=== PATIENT | male | born 1990 | race Caucasian/White ===

== ENCOUNTER 2016-11-18 12:05 | Emergency (ER) | payer SELFPAY ==
[~2016-11-18] VITALS: Ht 167.6 cm; Wt 65.0 kg
[~2016-11-18 12:05] MED LIST: IBUP-232 PO; ZOFR4TAB3 SL
[2016-11-18] MEDS ORDERED: SODIUM CHLOR 0.9% 1000 ML INJ 1,000 ML IV SCH (12:10)
--- NOTE | 2016-11-18 12:13 | PD ---
HPI Chief Complaint: vomiting blood Time Seen by Provider: 12:10 Travel History International Travel<30 days: No Contact w/Intl Traveler<30days: No Traveled to known affect area: No History of Present Illness HPI 26-year-old male with history of pancreatitis, bipolar disorder, status post appendectomy and cholecystectomy, presents to the ER today because he states that he has been having nausea, vomiting, vomiting small amounts of blood this morning. He also complains of abdominal pain. He denies any fevers, diarrhea, or any other issues. Modifying Factors: None Associated Signs & Symptoms: Nausea, vomiting, abdominal pain Risk factors: Pancreatitis PFSH Past Medical History ADHD: Yes Asthma: No Blood Disorders: No Bipolar Disorder: Yes Heart Rhythm Problems: No Cancer: No Cardiovascular Problems: No High Cholesterol: No Chemotherapy: No Chest Pain: No Congestive Heart Failure: No COPD: No Diabetes: No Diminished Hearing: No Gastrointestinal Disorders: No Genitourinary: No Hiatal Hernia: Yes Hypertension: No Immune Disorder: No Inguinal Hernia: Yes Implanted Vascular Access Dvce: No Musculoskeletal: No Neurologic: No Psychiatric: Yes (HISTORY OF REPORTED BIPOLAR DISORDER) Reproductive: No Respiratory: No Immunizations Current: No Pancreatitis: Yes Radiation Therapy: No Sleep Apnea: No Thyroid Disease: No Past Surgical History Appendectomy: Yes Cholecystectomy: Yes Genitourinary Surgery: Yes (HERNIA REPAIR) Other Surgery: Yes (APPENDECTOMY) Social History Alcohol Use: Yes (bacardi gold) Tobacco Use: Yes (1/2 ppd) Substance Use: Yes (MARIJUANA) Allergies-Medications (Allergen,Severity, Reaction): Coded Allergies: No Known Allergies (Unverified , 10/15/16) Reported Meds & Prescriptions Reported Meds & Active Scripts Active No Active Prescriptions or Reported Medications Review of Systems Except as stated in HPI: all other systems reviewed are Neg Physical Exam Narrative GENERAL: Well-nourished, well-developed young male patient in mild distress. SKIN: Warm and dry. HEAD: Normocephalic. EYES: No scleral icterus. No injection or drainage. NECK: Supple, trachea midline. CARDIOVASCULAR: Regular rate and rhythm without murmurs, gallops, or rubs. RESPIRATORY: Breath sounds equal bilaterally. No accessory muscle use. GASTROINTESTINAL: Abdomen soft, diffuse abdominal tenderness without guarding or rebound, nondistended. MUSCULOSKELETAL: No cyanosis, or edema. BACK: Nontender without obvious deformity. No CVA tenderness. Data Data Last Documented VS Vital Signs Date Time Temp Pulse Resp B/P Pulse Ox O2 Delivery O2 Flow Rate FiO2 11/18/16 15:33 68 17 108/57 100 Room Air 11/18/16 12:14 98.4 Orders Complete Blood Count With Diff (11/18/16 12:10) Comprehensive Metabolic Panel (11/18/16 12:10) Lipase (11/18/16 12:10) Prothrombin Time / Inr (Pt) (11/18/16 12:10) Act Partial Throm Time (Ptt) (11/18/16 12:10) Ct Abd/Pel W Iv Contrast(Rout) (11/18/16 12:10) Iv Access Insert/Monitor (11/18/16 12:10) Ecg Monitoring (11/18/16 12:10) Oximetry (11/18/16 12:10) NPO (11/18/16 12:10) Ondansetron Inj (Zofran Inj) (11/18/16 12:15) Pantoprazole Inj (Protonix Inj) (11/18/16 12:15) Sodium Chlor 0.9% 1000 Ml Inj (Ns 1000 M (11/18/16 12:10) Sodium Chloride 0.9% Flush (Ns Flush) (11/18/16 12:15) Morphine Inj (Morphine Inj) (11/18/16 13:00) Labs Laboratory Tests Test 11/18/16 12:15 White Blood Count 4.7 TH/MM3 Red Blood Count 4.27 MIL/MM3 Hemoglobin 14.2 GM/DL Hematocrit 40.8 % Mean Corpuscular Volume 95.5 FL Mean Corpuscular Hemoglobin 33.3 PG Mean Corpuscular Hemoglobin 34.8 % Concent Red Cell Distribution Width 13.4 % Platelet Count 127 TH/MM3 Mean Platelet Volume 8.5 FL Neutrophils (%) (Auto) 76.8 % Lymphocytes (%) (Auto) 13.0 % Monocytes (%) (Auto) 8.0 % Eosinophils (%) (Auto) 0.5 % Basophils (%) (Auto) 1.7 % Neutrophils # (Auto) 3.6 TH/MM3 Lymphocytes # (Auto) 0.6 TH/MM3 Monocytes # (Auto) 0.4 TH/MM3 Eosinophils # (Auto) 0.0 TH/MM3 Basophils # (Auto) 0.1 TH/MM3 CBC Comment DIFF FINAL Differential Comment Prothrombin Time 11.7 SEC Prothromb Time International 1.1 RATIO Ratio Activated Partial 28.6 SEC Thromboplast Time Sodium Level 141 MEQ/L Potassium Level 4.2 MEQ/L Chloride Level 108 MEQ/L Carbon Dioxide Level 27.1 MEQ/L Anion Gap 6 MEQ/L Blood Urea Nitrogen 11 MG/DL Creatinine 0.71 MG/DL Estimat Glomerular Filtration 135 ML/MIN Rate Random Glucose 90 MG/DL Calcium Level 8.6 MG/DL Total Bilirubin 0.4 MG/DL Aspartate Amino Transf 41 U/L (AST/SGOT) Alanine Aminotransferase 187 U/L (ALT/SGPT) Alkaline Phosphatase 85 U/L Total Protein 7.5 GM/DL Albumin 4.1 GM/DL Lipase 74 U/L [facility] Medical Decision Making Medical Screen Exam Complete: Yes Emergency Medical Condition: Yes Medical Record Reviewed: Yes Interpretation(s) Laboratory Tests Test 11/18/16 12:15 Red Blood Count 4.27 MIL/MM3 (4.50-5.90) Platelet Count 127 TH/MM3 (150-450) Neutrophils (%) (Auto) 76.8 % (16.0-70.0) Lymphocytes # (Auto) 0.6 TH/MM3 (1.0-4.8) Prothrombin Time 11.7 SEC (9.8-11.6) Chloride Level 108 MEQ/L (98-107) Aspartate Amino Transf 41 U/L (15-37) (AST/SGOT) Alanine Aminotransferase 187 U/L (12-78) (ALT/SGPT) Differential Diagnosis Nausea, vomiting, abdominal pains, vomiting small amounts of bloodgastritis versus gastroenteritis versus pancreatitis versus GI bleed Narrative Course Lab work did not show significant signs of dehydration, anemia, or significant metabolic issues. CAT scan did not show any signs of acute intra-abdominal processes. At this point, suspect gastritis as the cause of current symptoms. Patient states that he vomited once up small amounts of blood at a time. At this point, patient had been given IV fluids, anti-medics, pain medications, and is doing well in the ER on reevaluation at 3:30. At this point, my plan would be to release the patient with follow-up to primary care doctor. Return for any worsening in symptoms as necessary. The plan was discussed with him and he states understanding. He should return for any worsening in vomiting, bleeding, and as needed. Diagnosis Primary Impression: ACUTE GASTRITIS WITH BLEEDING Med/Other Pt SpecificInfo: Prescription(s) given Scripts Ondansetron Odt (Zofran Odt)4 Mg Tab4 Mg SL Q6HR PRN (Nausea/Vomiting) #7 TAB Ref 0 Prov:Abdoulaye Barber MD 11/18/16 Ranitidine (Zantac)150 Mg Dup800 Mg PO BID #20 TAB Ref 0 Prov:Abdoulaye Barber MD 11/18/16 Disposition: 01 DISCHARGE HOME Condition: Stable Abdoulaye Barber MD Nov 18, 2016 12:13
[2016-11-18 12:14] VITALS: BP 131/80; PULSE 87; RESP 16; TEMP 98.4; O2SAT 100
[2016-11-18] MEDS ORDERED: ONDANSETRON HCL 4 MG/2 ML VIAL IVP ONE (12:15)
[2016-11-18] MEDS ORDERED: PANTOPRAZOLE SODIUM 40 MG VIAL IVP ONE (12:15)
[2016-11-18 12:26] LABS: AUTOMATED NEUTROPHIL # 3.6 TH/MM3 (1.8-7.7); BASOPHIL # 0.1 TH/MM3 (0-0.2); BASOPHIL % 1.7 % (0.0-2.0); EOSINOPHIL % 0.5 % (0.0-4.0); HEMATOCRIT 40.8 % (39.0-51.0); HEMO FLAGS DIFF FINAL; LYMPHOCYTE # 0.6 TH/MM3 (1.0-4.8); MEAN CELL VOLUME 95.5 FL (80.0-100.0); MEAN CORPUSCULAR HEMOGLOBIN 33.3 PG (27.0-34.0); MEAN CORPUSCULAR HGB CONC 34.8 % (32.0-36.0); NEUT % 76.8 % (16.0-70.0); PLATELET COUNT 127 TH/MM3 (150-450); RED BLOOD COUNT 4.27 MIL/MM3 (4.50-5.90); RED CELL DISTRIBUTION WIDTH 13.4 % (11.6-17.2); WHITE BLOOD COUNT 4.7 TH/MM3 (4.0-11.0)
[2016-11-18] MEDS: SODIUM CHLORIDE 0.9% FLUSH 5 ML FLUSH IVF PRN ×2 (12:31→14:50)
[2016-11-18 12:36] LABS: APTT (PATIENT) 28.6 SEC (24.3-30.1); INTERNATIONAL NORMALIZED RATIO 1.1 RATIO; PROTHROMBIN TIME - PATIENT 11.7 SEC (9.8-11.6)
[2016-11-18] MEDS ORDERED: MORPHINE SULFATE 4 MG/ML INJ IV PUSH ONE (13:00)
[2016-11-18 13:06] LABS: ALKALINE PHOSPHATASE 85 U/L (45-117); ALT (GPT) 187 U/L (12-78); ANION GAP 6 MEQ/L (5-15); AST (GOT) 41 U/L (15-37); BICARBONATE 27.1 MEQ/L (21.0-32.0); BLOOD UREA NITROGEN 11 MG/DL (7-18); CHLORIDE 108 MEQ/L (98-107); GLOMERULAR FILTRATION RATE 135 ML/MIN (>89); POTASSIUM 4.2 MEQ/L (3.5-5.1); SODIUM (NA) 141 MEQ/L (136-145); TOTAL BILIRUBIN ADULT 0.4 MG/DL (0.2-1.0)
[2016-11-18 15:33] VITALS: BP 108/57; PULSE 68; RESP 17; O2SAT 100
--- NOTE | 2016-11-18 15:35 | RADRPT ---
EXAM DATE/TIME: 11/18/2016 14:57 [facility] COMPARISON: CT ABDOMEN & PELVIS W CONTRAST, March 26, 2015, 15:22. INDICATIONS : Vomiting and abdominal pain for four days. IV CONTRAST: 95 cc Omnipaque 350 (iohexol) IV ORAL CONTRAST: No oral contrast ingested. RADIATION DOSE: 9.96 CTDIvol (mGy) MEDICAL HISTORY : Pancreatitis. Hernia, hiatal. Hernia, inguinal. SURGICAL HISTORY : Appendectomy. Cholecystectomy. ENCOUNTER: Initial ACUITY: 4 - 6 days PAIN SCALE: 7/10 LOCATION: abdomen/pelvis TECHNIQUE: Volumetric scanning of the abdomen and pelvis was performed. Using automated exposure control and ad justment of the mA and/or kV according to patient size, radiation dose was kept as low as reasonably achievable to obtain optimal diagnostic quality images. FINDINGS: LOWER LUNGS: The visualized lower lungs are clear. LIVER: Homogeneous density without lesion. There is no dilation of the biliary tree. The common bile duct measures 8 mm. Hemoclips in the kenneth from prior cholecystectomy. SPLEEN: Normal size without lesion. PANCREAS: Within normal limits. KIDNEYS: Normal in size and shape. There is no mass, stone or hydronephrosis. ADRENAL GLANDS: Within normal limits. VASCULAR: There is no aortic aneurysm. BOWEL/MESENTERY: No dilated loops of small large bowel. A mild amount of stool in the right colon. No evidence of fr ee fluid. ABDOMINAL WALL: Within normal limits. RETROPERITONEUM: There is no lymphadenopathy. BLADDER: No wall thickening or mass. REPRODUCTIVE: Within normal limits. INGUINAL: There is no lymphadenopathy or hernia. MUSCULOSKELETAL: Within normal limits for patient age. CONCLUSION: Negative CT abdomen/pelvis with contrast. Prior cholecystectomy with the common bile duct upper limi ts normal in dimension. Kang Hope MD on November 18, 2016 at 15:31 Board Certified Radiologist. This report was verified electronically.
[2016-11-18] MEDS ORDERED: ZOFR4TAB3 SL (15:39)
[2016-11-18] MEDS ORDERED: ZANT150T2 PO (15:39)
[2016-11-18] MEDS ORDERED: IOHEXOL 350 MG/ML 10 ML VIAL (for RAD DIAG) IV ONE (15:43)
== END 2016-11-18 16:36 | disposition home or self-care (01) ==
LOC: NEPA 12:05
DX: K29.01 Acute gastritis with bleeding (principal)
CPT/HCPCS: 74177; 80053; 83690; 85025; 85610; 85730; 96374; 96375; 99284; C9113; J2270; J2405; J7030; Q9967

== ENCOUNTER 2017-02-13 17:22 | Observation (INO) | payer SELFPAY ==
[~2017-02-13] VITALS: Ht 170.2 cm; Wt 62.0 kg
[~2017-02-13 17:22] MED LIST changes: -IBUP-232 PO; +ZANT150T2 PO
[2017-02-13 17:26] VITALS: BP 155/69; PULSE 73; RESP 15; TEMP 97.9; O2SAT 100
--- NOTE | 2017-02-13 17:29 | PD ---
Physical Exam Date Seen by Provider: Feb 13, 2017 Time Seen by Provider: 17:26 Narrative Pt presents with chest and stomach pain, this started at 1300 today. Pt has a history of pancreatitis. Pt reports nausea, dizziness, no vomiting. Pt reports 10/10 pain. Pt and girlfriend were walking around noon and 20 minutes into the walk he developed epigastric pain that radiates to chest and lower abdomen. [facility] Supervised Visit with SMHUEL: Belinda Thomas Feb 13, 2017 17:29
[2017-02-13] MEDS ORDERED: SODIUM CHLORIDE 0.9% FLUSH 10 ML FLUSH IVF PRN (17:45)
[2017-02-13] MEDS ORDERED: MORPHINE SULFATE 8 MG/ML INJ IV PUSH ONE ×2 (18:00→20:00)
[2017-02-13] MEDS ORDERED: SODIUM CHLOR 0.9% 1000 ML INJ 1,000 ML IV ONE (18:00)
[2017-02-13] MEDS ORDERED: ONDANSETRON HCL 4 MG/2 ML VIAL IV PUSH ONE (18:00)
[2017-02-13 18:06] LABS: AUTOMATED NEUTROPHIL # 5.9 TH/MM3 (1.8-7.7); BASOPHIL % 0.4 % (0.0-2.0); EOSINOPHIL % 0.5 % (0.0-4.0); HEMATOCRIT 40.9 % (39.0-51.0); HEMO FLAGS DIFF FINAL; LYMPH % 21.5 % (9.0-44.0); LYMPHOCYTE # 1.9 TH/MM3 (1.0-4.8); MEAN CELL VOLUME 94.7 FL (80.0-100.0); MEAN CORPUSCULAR HEMOGLOBIN 31.8 PG (27.0-34.0); MEAN CORPUSCULAR HGB CONC 33.5 % (32.0-36.0); NEUT % 65.6 % (16.0-70.0); PLATELET COUNT 146 TH/MM3 (150-450); RED BLOOD COUNT 4.32 MIL/MM3 (4.50-5.90); RED CELL DISTRIBUTION WIDTH 13.2 % (11.6-17.2)
--- NOTE | 2017-02-13 18:10 | RADRPT ---
EXAM DATE/TIME: 02/13/2017 17:59 [facility] COMPARISON: CHEST SINGLE AP, July 10, 2014, 19:47. INDICATIONS : Chest pain. MEDICAL HISTORY : None. SURGICAL HISTORY : None. ENCOUNTER: Initial ACUITY: 1 day PAIN SCORE: 10/10 LOCATION: Bilateral chest FINDINGS: A single view of the chest demonstrates the lungs to be symmetrically aerated without evidence of mas s, infiltrate or effusion. The cardiomediastinal contours are unremarkable. Osseous structures are intact. CONCLUSION: No acute disease. Jas Arzate MD on February 13, 2017 at 18:08 Board Certified Radiologist. This report was verified electronically.
[2017-02-13 18:13] VITALS: BP 125/76; PULSE 64; RESP 16; O2SAT 98
[2017-02-13 18:17] LABS: INTERNATIONAL NORMALIZED RATIO 1.1 RATIO; PROTHROMBIN TIME - PATIENT 12.2 SEC (9.8-11.6)
[2017-02-13 18:29] LABS: ANION GAP 7 MEQ/L (5-15); AST (GOT) 167 U/L (15-37); BICARBONATE 27.5 MEQ/L (21.0-32.0); BLOOD UREA NITROGEN 12 MG/DL (7-18); CHLORIDE 105 MEQ/L (98-107); GLOMERULAR FILTRATION RATE 145 ML/MIN (>89); MAGNESIUM 2.1 MG/DL (1.5-2.5); POTASSIUM 3.8 MEQ/L (3.5-5.1); SODIUM (NA) 139 MEQ/L (136-145)
[2017-02-13 18:34] LABS: ALKALINE PHOSPHATASE 83 U/L (45-117); ALT (GPT) 99 U/L (12-78); TOTAL BILIRUBIN ADULT 1.4 MG/DL (0.2-1.0)
[2017-02-13] MEDS ORDERED: IOHEXOL 350 MG/ML 10 ML VIAL (for RAD DIAG) IV ONE (18:40)
--- NOTE | 2017-02-13 18:49 | RADRPT ---
EXAM DATE/TIME: 02/13/2017 18:23 [facility] COMPARISON: CT ABDOMEN & PELVIS W CONTRAST, November 18, 2016, 14:57. INDICATIONS : Chest and abdomen pain with nausea. IV CONTRAST: 70 cc Omnipaque 350 (iohexol) IV ORAL CONTRAST: No oral contrast ingested. RADIATION DOSE: 9.96 CTDIvol (mGy) MEDICAL HISTORY : Pancreatitis. SURGICAL HISTORY : Appendectomy. Cholecystectomy. ENCOUNTER: Initial ACUITY: 1 day PAIN SCALE: 7/10 LOCATION: Bilateral upper abdomen TECHNIQUE: Volumetric scanning of the abdomen and pelvis was performed. Using automated exposure control and ad justment of the mA and/or kV according to patient size, radiation dose was kept as low as reasonably achievable to obtain optimal diagnostic quality images. FINDINGS: LOWER LUNGS: The visualized lower lungs are clear. LIVER: Homogeneous density without lesion. There is mild dilation of the biliary tree. Status post cholecy stectomy. Stable subcentimeter low density. SPLEEN: Normal size without lesion. PANCREAS: Within normal limits. KIDNEYS: Normal in size and shape. There is no mass, stone or hydronephrosis. ADRENAL GLANDS: Within normal limits. VASCULAR: There is no aortic aneurysm. BOWEL/MESENTERY: The stomach, small bowel, and colon demonstrate no acute abnormality. There is no free intraperitone al air or fluid. ABDOMINAL WALL: Within normal limits. RETROPERITONEUM: There is no lymphadenopathy. BLADDER: No wall thickening or mass. REPRODUCTIVE: Within normal limits. INGUINAL: There is no lymphadenopathy or hernia. MUSCULOSKELETAL: Within normal limits for patient age. CONCLUSION: 1. Status post cholecystectomy. 2. No acute inflammatory process. 3. Stable subcentimeter hepatic low-density, likely benign. Jas Arzate MD on February 13, 2017 at 18:43 Board Certified Radiologist. This report was verified electronically.
--- NOTE | 2017-02-13 18:52 | PD ---
HPI Chief Complaint: Chest Pain Time Seen by Provider: 17:35 Travel History International Travel<30 days: No Contact w/Intl Traveler<30days: No Traveled to known affect area: No History of Present Illness HPI 26-year-old male presents to the emergency department with epigastric pain radiating up into his chest. Patient states she's had similar symptoms like this in the past but never this severe. Patient states that he has a history of chronic pancreatitis. He relates a history that he was crossing a railroad tracks and had to hurry up because the train was coming. He says shortly after that he experienced the pain which resolved when he was sitting still. But then came back and his associated with severe nausea without vomiting. Patient states the pain is intense at this time and he is quite uncomfortable appearing. PFSH Past Medical History Hx Anticoagulant Therapy: No ADHD: Yes Asthma: No Blood Disorders: No Bipolar Disorder: Yes Heart Rhythm Problems: No Cancer: No Cardiovascular Problems: No High Cholesterol: No Chemotherapy: No Chest Pain: No Congestive Heart Failure: No COPD: No Cerebrovascular Accident: No Diabetes: No Diminished Hearing: No Gastrointestinal Disorders: No Genitourinary: No Hiatal Hernia: Yes Hypertension: No Immune Disorder: No Inguinal Hernia: Yes Implanted Vascular Access Dvce: No Musculoskeletal: No Neurologic: No Psychiatric: Yes (HISTORY OF REPORTED BIPOLAR DISORDER) Reproductive: No Respiratory: No Immunizations Current: No Pancreatitis: Yes Radiation Therapy: No Sleep Apnea: No Thyroid Disease: No Past Surgical History Appendectomy: Yes Cholecystectomy: Yes Genitourinary Surgery: Yes (HERNIA REPAIR) Hysterectomy: No Other Surgery: Yes (APPENDECTOMY) Social History Alcohol Use: Yes (bacardi gold) Tobacco Use: Yes (1/2 ppd) Substance Use: Yes (MARIJUANA) Allergies-Medications (Allergen,Severity, Reaction): Coded Allergies: No Known Allergies (Unverified , 02/13/17) Reported Meds & Prescriptions Reported Meds & Active Scripts Active Review of Systems Except as stated in HPI: all other systems reviewed are Neg Physical Exam Narrative GENERAL: Well-developed well-nourished no apparent distress SKIN: Focused skin assessment warm/dry. HEAD: Atraumatic. Normocephalic. EYES: Pupils equal and round. No scleral icterus. No injection or drainage. ENT: No nasal bleeding or discharge. Mucous membranes pink and moist. NECK: Trachea midline. No JVD. CARDIOVASCULAR: Regular rate and rhythm. No murmur appreciated. RESPIRATORY: No accessory muscle use. Clear to auscultation. Breath sounds equal bilaterally. GASTROINTESTINAL: Abdomen soft, moderately tender in the epigastric area, nondistended. Hepatic and splenic margins not palpable. Voluntary guarding. No rebound no percussive tenderness. MUSCULOSKELETAL: No obvious deformities. No clubbing. No cyanosis. No edema. NEUROLOGICAL: Awake and alert. No obvious cranial nerve deficits. Motor grossly within normal limits. Normal speech. PSYCHIATRIC: Appropriate mood and affect; insight and judgment normal. Data Data Last Documented VS Vital Signs Date Time Temp Pulse Resp B/P Pulse Ox O2 Delivery O2 Flow Rate FiO2 02/13/17 19:45 71 16 120/75 98 Room Air 02/13/17 17:26 97.9 Orders Complete Blood Count With Diff (02/13/17 17:37) Comprehensive Metabolic Panel (02/13/17 17:37) Magnesium (Mg) (02/13/17 17:37) Prothrombin Time / Inr (Pt) (02/13/17 17:37) Act Partial Throm Time (Ptt) (02/13/17 17:37) Troponin I (02/13/17 17:37) Lipase (02/13/17 17:37) Chest, Single Ap (02/13/17 17:37) Ecg Monitoring (02/13/17 17:37) Iv Access Insert/Monitor (02/13/17 17:37) Oximetry (02/13/17 17:37) Oxygen Administration (02/13/17 17:37) Sodium Chloride 0.9% Flush (Ns Flush) (02/13/17 17:45) Morphine Inj (Morphine Inj) (02/13/17 18:00) Ondansetron Inj (Zofran Inj) (02/13/17 18:00) Sodium Chlor 0.9% 1000 Ml Inj (Ns 1000 M (02/13/17 18:00) Ct Abd/Pel W Iv Contrast(Rout) (02/13/17 ) Iohexol 350 Inj (Omnipaque 350 Inj) (02/13/17 18:40) Morphine Inj (Morphine Inj) (02/13/17 20:00) Admit Order (Ed Use Only) (02/13/17 ) Labs Laboratory Tests Test 02/13/17 02/13/17 17:25 17:52 Prothrombin Time 12.2 SEC Prothromb Time International 1.1 RATIO Ratio Activated Partial 29.0 SEC Thromboplast Time White Blood Count 9.0 TH/MM3 Red Blood Count 4.32 MIL/MM3 Hemoglobin 13.7 GM/DL Hematocrit 40.9 % Mean Corpuscular Volume 94.7 FL Mean Corpuscular Hemoglobin 31.8 PG Mean Corpuscular Hemoglobin 33.5 % Concent Red Cell Distribution Width 13.2 % Platelet Count 146 TH/MM3 Mean Platelet Volume 8.3 FL Neutrophils (%) (Auto) 65.6 % Lymphocytes (%) (Auto) 21.5 % Monocytes (%) (Auto) 12.0 % Eosinophils (%) (Auto) 0.5 % Basophils (%) (Auto) 0.4 % Neutrophils # (Auto) 5.9 TH/MM3 Lymphocytes # (Auto) 1.9 TH/MM3 Monocytes # (Auto) 1.1 TH/MM3 Eosinophils # (Auto) 0.0 TH/MM3 Basophils # (Auto) 0.0 TH/MM3 CBC Comment DIFF FINAL Differential Comment Sodium Level 139 MEQ/L Potassium Level 3.8 MEQ/L Chloride Level 105 MEQ/L Carbon Dioxide Level 27.5 MEQ/L Anion Gap 7 MEQ/L Blood Urea Nitrogen 12 MG/DL Creatinine 0.67 MG/DL Estimat Glomerular Filtration 145 ML/MIN Rate Random Glucose 93 MG/DL Calcium Level 8.6 MG/DL Magnesium Level 2.1 MG/DL Total Bilirubin 1.4 MG/DL Aspartate Amino Transf 167 U/L (AST/SGOT) Alanine Aminotransferase 99 U/L (ALT/SGPT) Alkaline Phosphatase 83 U/L Troponin I LESS THAN 0.02 NG/ML Total Protein 7.0 GM/DL Albumin 4.2 GM/DL Lipase 874 U/L [facility] Medical Decision Making Medical Screen Exam Complete: Yes Emergency Medical Condition: Yes Differential Diagnosis Pancreatitis, gastritis, gastritis, ACS unlikely. Narrative Course Patient 26-year-old male with a history of recurrent pancreatitis status post cholecystectomy presents with signs symptoms concerning for recurrent pancreatitis. His lipase is elevated to in excess of 800. He is quite uncomfortable in appearance. He is been giving morphine fluids and Zofran I highly doubt that this patient is going to respond in the emergency department and likely will need admission. Patient given morphine and starting to feel somewhat better. He is thirsty. Discussed with him needs to keep nothing by mouth for the time being. He does appear quite uncomfortable. CAT scan was obtained which was negative. Additional dose of morphine was given. Patient initially reluctant to stay and I discussed that he could consider outpatient management but likely he may get sicker and require admission for dehydration if he is unable tolerate by mouth fluids after this discussion the patient like to stay at least overnight in the hospital and I think this is appropriate given his level of discomfort that he displays. Patient was discussed with Dr. Espino for admission. Diagnosis Primary Impression: Pancreatitis Qualified Code: K85.90 - Acute pancreatitis, unspecified complication status, unspecified pancreatitis type Admitting Information Admitting Physician Requests: Observation Condition: Stable Reyes Christy MD Feb 13, 2017 18:52
[2017-02-13 19:45] VITALS: BP 120/75; PULSE 71; RESP 16; O2SAT 98
[2017-02-13] MEDS ORDERED: NALOXONE HCL 0.4 MG/ML AMP IV PRN (20:00)
[2017-02-13] MEDS ORDERED: SODIUM CHLORIDE 0.9% FLUSH 10 ML FLUSH IV FLUSH PRN (20:00)
[2017-02-13] MEDS: SODIUM CHLOR 0.9% 1000 ML INJ 1,000 ML IV SCH (20:23)
[2017-02-13] MEDS: SODIUM CHLORIDE 0.9% FLUSH 10 ML FLUSH IV FLUSH SCH (20:51)
--- NOTE | 2017-02-13 20:52 | HHI.HP ---
[facility] [place] No Primary Care Physician Admission Diagnosis Pancreatitis Diagnoses: Chief Complaint: abdominal pain Travel History International Travel<30 Days: No Contact w/Intl Traveler <30 Da: No Traveled to Known Affected Are: No History of Present Illness This is a 26 year old male patient with a past medical history which includes ADHD, bipolar, gastritis and chronic pancreatitis. Patient was in his normal state of megan around 11:30 he was walking and ran over the train tracks. [place] in the day around 1200pm patient began to have severe epigastric pain which radiated to his chest associated with intermitted nausea and dizziness without vomiting. Patient also reports subjective intermitted fevers x 1 day with associated hot and cold flashes. Reports constipated last BM 1.5 days ago. Patient denies dysuria, penile discharge, open sores, shortness of breath , black tarry stools or BRBPR. Patient reports he rarely drinks alcohol last drink was 2-3 days ago. Patient also reports that this feels similar to his prior pancreatitis episodes but feels as though this is worse than before. Pain improved with IV morphine. Review of Systems Except as stated in HPI: all other systems reviewed are Neg Past Family Social History Past Medical History AHHD, bipolar, gastritis and chronic pancreatitis Past Surgical History appendectomy, hernia repair as a baby, cholecystectomy Reported Medications denies taking medications on a daily bases Allergies: Coded Allergies: No Known Allergies (Unverified , 02/13/17) Active Ordered Medications Current Medications Medications (Trade) Dose Ordered Sig/Rhea Route Start Time Stop Time Status Last Admin (NS 1000 ml Inj) 1,000 ml @ 250 mls/hr Q4H IV 02/13/17 19:57 02/13/17 20:23 (NS Flush) 2 ml UNSCH PRN IV FLUSH 02/13/17 20:00 (NS Flush) 2 ml BID IV FLUSH 02/13/17 21:00 (Zofran Inj) 4 mg Q6H PRN IVP 02/13/17 20:00 (Narcan Inj) 0.4 mg UNSCH PRN IV 02/13/17 20:00 (Dilaudid Pf Inj) 1 mg Q3HR PRN IV PUSH 02/13/17 20:15 Family History Mother had an NH at age 50 Social History ETOH occasionally on special occasions- last drink 2-3 days ago tobacco use 0.5 PPD marijuana occasionally Physical Exam Vital Signs Vital Signs Date Time Temp Pulse Resp B/P Pulse Ox O2 Delivery O2 Flow Rate FiO2 02/13/17 19:45 71 16 120/75 98 Room Air 02/13/17 18:13 98 Room Air 02/13/17 18:13 64 16 125/76 98 Room Air 02/13/17 18:13 Room Air 02/13/17 17:26 97.9 73 15 155/69 100 Physical Exam GENERAL: This is a well-nourished, well-developed patient, appears uncomfortable but in no apparent distress. SKIN: No rashes, ecchymoses or lesions. Cool and dry. HEAD: Atraumatic. Normocephalic. No temporal or scalp tenderness. EYES: Extraocular motions intact. No scleral icterus. No injection or drainage. CARDIOVASCULAR: Regular rate and rhythm without murmurs, gallops, or rubs. RESPIRATORY: Clear to auscultation. Breath sounds equal bilaterally. No wheezes , rales, or rhonchi. GASTROINTESTINAL: Abdomen soft, tender to light palpation, nondistended. MUSCULOSKELETAL: Extremities without clubbing, cyanosis, or edema. No joint tenderness, effusion, or edema noted. No calf tenderness. Negative Homans sign bilaterally. NEUROLOGICAL: Awake and alert. Motor and sensory grossly within normal limits. Five out of 5 muscle strength in all muscle groups. Normal speech. Laboratory Laboratory Tests Test 02/13/17 02/13/17 17:25 17:52 Prothrombin Time 12.2 Prothromb Time International 1.1 Ratio Activated Partial 29.0 Thromboplast Time White Blood Count 9.0 Red Blood Count 4.32 Hemoglobin 13.7 Hematocrit 40.9 Mean Corpuscular Volume 94.7 Mean Corpuscular Hemoglobin 31.8 Mean Corpuscular Hemoglobin 33.5 Concent Red Cell Distribution Width 13.2 Platelet Count 146 Mean Platelet Volume 8.3 Neutrophils (%) (Auto) 65.6 Lymphocytes (%) (Auto) 21.5 Monocytes (%) (Auto) 12.0 Eosinophils (%) (Auto) 0.5 Basophils (%) (Auto) 0.4 Neutrophils # (Auto) 5.9 Lymphocytes # (Auto) 1.9 Monocytes # (Auto) 1.1 Eosinophils # (Auto) 0.0 Basophils # (Auto) 0.0 CBC Comment DIFF FINAL Differential Comment Sodium Level 139 Potassium Level 3.8 Chloride Level 105 Carbon Dioxide Level 27.5 Anion Gap 7 Blood Urea Nitrogen 12 Creatinine 0.67 Estimat Glomerular Filtration 145 Rate Random Glucose 93 Calcium Level 8.6 Magnesium Level 2.1 Total Bilirubin 1.4 Aspartate Amino Transf 167 (AST/SGOT) Alanine Aminotransferase 99 (ALT/SGPT) Alkaline Phosphatase 83 Troponin I LESS THAN 0.02 Total Protein 7.0 Albumin 4.2 Lipase 874 Result Diagram: 02/13/17 1752 02/13/17 175 Imaging Last Impressions Chest X-Ray 02/13/17 1737 Signed Impressions: Service Date/Time: Monday, February 13, 2017 17:59 - CONCLUSION: No acute disease. Jas Arzate MD Abdomen/Pelvis CT 02/13/17 0000 Signed Impressions: Service Date/Time: Monday, February 13, 2017 18:23 - CONCLUSION: 1. Status post cholecystectomy. 2. No acute inflammatory process. 3. Stable subcentimeter hepatic low-density, likely benign. Jas Arzate MD Assessment and Plan Assessment and Plan This is a 26 year old male patient with a past medical history which includes ADHD, bipolar, gastritis and chronic pancreatitis. Patient was in his normal state of megan around 11:30 this morning patient was in his normal state of health and recalls taking a walk and running over the train tracks. T[place] in the day around 1200pm patient began to have severe epigastric pain which radiated to his chest associated with intermitted nausea and dizziness without vomiting. Has had subjective intermitted fevers x 1 day with associated hot and cold flashes. Reports constipated last BM 1.5 days ago. Patient denies dysuria, penile discharge, open sores acute exacerbation of chronic Pancreatitis, elevated lipase 874 clear liquids IV fluids Dilaudid IV for pain management CT abdomen/pelvis reviewed by myself and Dr. Hays reveals: Status post cholecystectomy. No acute inflammatory process. Stable subcentimeter hepatic low -density, likely benign. transaminitis (total bilirubin 1.4 AST 167, and ALT 99) clear liquids IV fluids counselled on ETOH abuse recheck CMP in AM Tobacco abuse Counselled encouraged to abstain nicotine patch DVT prophylaxis SCDs discussed with ER provider, nursing and patient Written by Yvonne Be, acting as scribe for Dr. Hays on 02/13/17 at 20: 49. This note was transcribed by scribe [Yvonne Be]. I, Dr. Gisella Hays personally performed the history, physical exam, and medical decision making; and confirmed the accuracy of the information in the transcribed note. Authenticated by Dr. Gisella Hays on 02/13/17 at 20:49. Yvonne Be Feb 13, 2017 20:52 Gisella Hays MD February 19, 2017 06:00
[2017-02-13] MEDS: HYDROmorphone HCL PF 1 MG/ML VIAL IV PUSH PRN (21:18)
[2017-02-13] MEDS: NICOTINE 14 MG/24 HR PATCH T-DERMAL SCH (21:39)
[2017-02-14] VITALS (7 sets, daily range): BP systolic 121–138; BP diastolic 70–95; PULSE 60–97; RESP 18–21; TEMP 97.7–98.7; O2SAT 95–99
[2017-02-14] MEDS: HYDROmorphone HCL PF 1 MG/ML VIAL IV PUSH PRN ×6 (00:29→21:42)
[2017-02-14] MEDS: SODIUM CHLOR 0.9% 1000 ML INJ 1,000 ML IV SCH ×7 (00:29→23:57)
[2017-02-14] MEDS: ONDANSETRON HCL 4 MG/2 ML VIAL IVP PRN ×3 (02:55→18:38)
[2017-02-14 06:40] LABS: AUTOMATED NEUTROPHIL # 3.8 TH/MM3 (1.8-7.7); BASOPHIL % 0.3 % (0.0-2.0); EOSINOPHIL % 0.6 % (0.0-4.0); HEMATOCRIT 39.6 % (39.0-51.0); HEMO FLAGS DIFF FINAL; LYMPH % 20.7 % (9.0-44.0); LYMPHOCYTE # 1.1 TH/MM3 (1.0-4.8); MEAN CELL VOLUME 95.6 FL (80.0-100.0); MEAN CORPUSCULAR HEMOGLOBIN 31.9 PG (27.0-34.0); MEAN CORPUSCULAR HGB CONC 33.3 % (32.0-36.0); MONO % 8.7 % (0.0-8.0); NEUT % 69.7 % (16.0-70.0); PLATELET COUNT 127 TH/MM3 (150-450); RED BLOOD COUNT 4.14 MIL/MM3 (4.50-5.90); WHITE BLOOD COUNT 5.4 TH/MM3 (4.0-11.0)
[2017-02-14 07:23] LABS: ALKALINE PHOSPHATASE 109 U/L (45-117); ALT (GPT) 219 U/L (12-78); ANION GAP 10 MEQ/L (5-15); AST (GOT) 227 U/L (15-37); BICARBONATE 23.3 MEQ/L (21.0-32.0); BLOOD UREA NITROGEN 10 MG/DL (7-18); CHLORIDE 108 MEQ/L (98-107); GLOMERULAR FILTRATION RATE 143 ML/MIN (>89); POTASSIUM 3.9 MEQ/L (3.5-5.1); SODIUM (NA) 141 MEQ/L (136-145); TOTAL BILIRUBIN ADULT 2.5 MG/DL (0.2-1.0)
[2017-02-14] MEDS: SODIUM CHLORIDE 0.9% FLUSH 10 ML FLUSH IV FLUSH SCH ×2 (09:00→19:55)
[2017-02-14] MEDS: NICOTINE 14 MG/24 HR PATCH T-DERMAL SCH (09:00)
[2017-02-14] MEDS: REMOVE OLD PATCH T-DERMAL SCH (09:00)
--- NOTE | 2017-02-14 09:24 | HHI.PR ---
Subjective Remarks Follow up abdominal pain. Patient is having a lot of abdominal pain, mainly on the right. States he was up all night vomiting, brown liquid. Patient states he only smokes 1/2 PPD and denies much alcohol use. He denies any chest pain or sob. Objective Vitals Vital Signs Date Time Temp Pulse Resp B/P Pulse Ox O2 Delivery O2 Flow Rate FiO2 02/14/17 07:31 97.7 76 20 128/72 99 02/14/17 04:04 97.9 71 21 130/85 97 02/14/17 02:23 60 02/14/17 00:48 72 20 134/80 95 02/13/17 21:39 16 02/13/17 20:51 16 02/13/17 19:45 71 16 120/75 98 Room Air 02/13/17 19:00 16 02/13/17 18:13 98 Room Air 02/13/17 18:13 64 16 125/76 98 Room Air 02/13/17 18:13 Room Air 02/13/17 17:26 97.9 73 15 155/69 100 Result Diagram: 02/14/17 0614 02/14/17 0614 Imaging Last Impressions Chest X-Ray 02/13/17 1737 Signed Impressions: Service Date/Time: Monday, February 13, 2017 17:59 - CONCLUSION: No acute disease. Jas Arzate MD Abdomen/Pelvis CT 02/13/17 0000 Signed Impressions: Service Date/Time: Monday, February 13, 2017 18:23 - CONCLUSION: 1. Status post cholecystectomy. 2. No acute inflammatory process. 3. Stable subcentimeter hepatic low-density, likely benign. Jas Arzate MD Objective Remarks GENERAL: This is a well-nourished, well-developed patient, appears tired and in pain SKIN: No rashes, ecchymoses or lesions. Cool and dry. HEAD: Atraumatic. Normocephalic. No temporal or scalp tenderness. EYES: Extraocular motions intact. No scleral icterus. No injection or drainage. CARDIOVASCULAR: Regular rate and rhythm without murmurs, gallops, or rubs. RESPIRATORY: Clear to auscultation. Breath sounds equal bilaterally. No wheezes , rales, or rhonchi. GASTROINTESTINAL: Abdomen soft, tender to palpation, nondistended. MUSCULOSKELETAL: Extremities without clubbing, cyanosis, or edema. No joint tenderness, effusion, or edema noted. No calf tenderness. NEUROLOGICAL: Awake and alert. Motor and sensory grossly within normal limits. Five out of 5 muscle strength in all muscle groups. Normal speech. Medications and IVs Current Medications Medications (Trade) Dose Ordered Sig/Rhea Route Start Time Stop Time Status Last Admin (NS 1000 ml Inj) 1,000 ml @ 250 mls/hr Q4H IV 02/13/17 19:57 02/14/17 02:55 (NS Flush) 2 ml UNSCH PRN IV FLUSH 02/13/17 20:00 (NS Flush) 2 ml BID IV FLUSH 02/13/17 21:00 (Zofran Inj) 4 mg Q6H PRN IVP 02/13/17 20:00 02/14/17 02:55 (Narcan Inj) 0.4 mg UNSCH PRN IV 02/13/17 20:00 (Dilaudid Pf Inj) 1 mg Q3HR PRN IV PUSH 02/13/17 20:15 02/14/17 04:15 (Habitrol 14 Mg Patch.24 Hr) 1 patch DAILY T-DERMAL 02/13/17 21:30 02/13/17 21:39 Miscellaneous Information 1 DAILY T-DERMAL 02/14/17 09:00 A/P Problem List: (1) Pancreatitis ICD Code: K85.9 Status: Acute Assessment and Plan This is a 26 year old male patient with a past medical history which includes ADHD, bipolar, gastritis and chronic pancreatitis. Patient was in his normal state of megan around 11:30 this morning patient was in his normal state of health and recalls taking a walk and running over the train tracks. T[place] in the day around 1200pm patient began to have severe epigastric pain which radiated to his chest associated with intermitted nausea and dizziness without vomiting. Has had subjective intermitted fevers x 1 day with associated hot and cold flashes. Reports constipated last BM 1.5 days ago. Patient denies dysuria, penile discharge, open sores Acute exacerbation of chronic Pancreatitis, elevated lipase 874 CT abdomen/pelvis: Status post cholecystectomy. No acute inflammatory process. Stable subcentimeter hepatic low-density, likely benign. -Cont clear liquids -ContIV fluids -Dilaudid IV for pain management -Repeat lipase pending Transaminitis, AST 167 -->227, ALT 99-->219 -Cont IV fluids -counselled on ETOH abuse -recheck CMP in AM -Consult GI Tobacco abuse -Counselled encouraged to abstain -nicotine patch DVT prophylaxis SCDs Written by PERLITA Lopez acting as scribe for [Marika] on 02/14/17 at 09: 01. This note was transcribed by scribe Maria G BHAT. I, Dr. Dee Hairston personally performed the history, physical exam, and medical decision making; and confirmed the accuracy of the information in the transcribed note. Authenticated by Dr. Dee Hairston on 02/14/17 at 09:01. Problem Qualifiers (1) Pancreatitis: Qualified Code: K85.90 - Acute pancreatitis, unspecified complication status, unspecified pancreatitis type Maria G Rowe Feb 14, 2017 09:24 Dee Hairston MD Feb 14, 2017 14:32
--- NOTE | 2017-02-14 14:41 | PD.CONS ---
HPI History of Present Illness This is a 27 year old with a history of pancreatitis who presented to the ER for evaluation of abdominal pain with associated nausea. He is alert and oriented, but extremely difficult to get any history from because he is easily distracted and does not really answer many of the questions that he is asked. The patient states that he has had pancreatitis "for awhile" but cannot tell me when he had his first episode, what the suspected etiology has been, or when he had his last episode. He reports that he was doing okay up until yesterday afternoon around 12pm when he had the sudden onset of severe epigastric pain that radiated to his chest. This is a severe constant dull ache that becomes sharp at times. He has associated nausea. Initially he did not have any actual vomiting, but later he developed associated vomiting, consisting of dark brown/black emesis. He also reports that he has had intermittent fevers for a day or two. He denies any diarrhea, melena, or hematochezia. He does have GERD , but can not really tell me how often he has this or if he takes meds for it. He reports that he rarely drinks ETOH and last had alcohol 4-5 days ago. He states that he had 2 shots for his birthday, but that he does not usually ever drink ETOH. He reports the only new medications was an unknown pain med that his friend gave him for some back pain. He cannot tell me when this was. ( Elisa Patino) PFSH Past Medical History HD Bipolar disorder Hx gastritis- does not know if he ever had EGD Hx chronic pancreatitis Past Surgical History Appendectomy Hernia repair as a baby Cholecystectomy (Elisa Patino) Coded Allergies: No Known Allergies (Unverified , 02/13/17) Medications Allergies Coded Allergies Type Severity Reaction Last Updated Verified No Known Allergies 02/13/17 No Active Scripts Medications Dose Route/Sig Days Date Category Family History Mother had an [place] at age 50 Social History ETOH occasionally on special occasions, but does not usually drink last drink 2- 3 days ago Tobacco smokes 1/2 PPD Occasional marijuana use, cannot tell me the last time. (Elisa Patino) Review of Systems Constitutional: COMPLAINS OF: Fatigue, DENIES: Weight loss Respiratory: DENIES: Cough Cardiovascular: COMPLAINS OF: Chest pain Gastrointestinal: COMPLAINS OF: Abdominal pain, Nausea, Vomiting, Heartburn, Hematemesis (questionable), DENIES: Black stools, Bloody stools, Constipation, Diarrhea Integumentary: COMPLAINS OF: Rash (multiple scabs to bue), DENIES: Abnormal pigmentation Hematologic/lymphatic: DENIES: Bruising Neurologic: DENIES: Headache Psychiatric: DENIES: Confusion (Elisa Patino PERLITA) GI Exam Vitals I&O Vital Signs Date Time Temp Pulse Resp B/P Pulse Ox O2 Delivery O2 Flow Rate FiO2 02/14/17 11:21 98.7 81 18 121/70 98 02/14/17 07:31 97.7 76 20 128/72 99 02/14/17 04:04 97.9 71 21 130/85 97 02/14/17 02:23 60 02/14/17 00:48 72 20 134/80 95 02/13/17 21:39 16 02/13/17 20:51 16 02/13/17 19:45 71 16 120/75 98 Room Air 02/13/17 19:00 16 02/13/17 18:13 98 Room Air 02/13/17 18:13 64 16 125/76 98 Room Air 02/13/17 18:13 Room Air 02/13/17 17:26 97.9 73 15 155/69 100 Imaging Last Impressions Chest X-Ray 02/13/17 1737 Signed Impressions: Service Date/Time: Monday, February 13, 2017 17:59 - CONCLUSION: No acute disease. Jas Arzate MD Abdomen/Pelvis CT 02/13/17 0000 Signed Impressions: Service Date/Time: Monday, February 13, 2017 18:23 - CONCLUSION: 1. Status post cholecystectomy. 2. No acute inflammatory process. 3. Stable subcentimeter hepatic low-density, likely benign. Jas Arzate MD Laboratory Test 02/13/17 02/13/17 02/14/17 17:25 17:52 06:14 Prothrombin Time 12.2 SEC Prothromb Time International 1.1 RATIO Ratio Activated Partial 29.0 SEC Thromboplast Time White Blood Count 9.0 TH/MM3 5.4 TH/MM3 Red Blood Count 4.32 MIL/MM3 4.14 MIL/MM3 Hemoglobin 13.7 GM/DL 13.2 GM/DL Hematocrit 40.9 % 39.6 % Mean Corpuscular Volume 94.7 FL 95.6 FL Mean Corpuscular Hemoglobin 31.8 PG 31.9 PG Mean Corpuscular Hemoglobin 33.5 % 33.3 % Concent Red Cell Distribution Width 13.2 % 13.0 % Platelet Count 146 TH/MM3 127 TH/MM3 Mean Platelet Volume 8.3 FL 8.6 FL Neutrophils (%) (Auto) 65.6 % 69.7 % Lymphocytes (%) (Auto) 21.5 % 20.7 % Monocytes (%) (Auto) 12.0 % 8.7 % Eosinophils (%) (Auto) 0.5 % 0.6 % Basophils (%) (Auto) 0.4 % 0.3 % Neutrophils # (Auto) 5.9 TH/MM3 3.8 TH/MM3 Lymphocytes # (Auto) 1.9 TH/MM3 1.1 TH/MM3 Monocytes # (Auto) 1.1 TH/MM3 0.5 TH/MM3 Eosinophils # (Auto) 0.0 TH/MM3 0.0 TH/MM3 Basophils # (Auto) 0.0 TH/MM3 0.0 TH/MM3 CBC Comment DIFF FINAL DIFF FINAL Differential Comment Sodium Level 139 MEQ/L 141 MEQ/L Potassium Level 3.8 MEQ/L 3.9 MEQ/L Chloride Level 105 MEQ/L 108 MEQ/L Carbon Dioxide Level 27.5 MEQ/L 23.3 MEQ/L Anion Gap 7 MEQ/L 10 MEQ/L Blood Urea Nitrogen 12 MG/DL 10 MG/DL Creatinine 0.67 MG/DL 0.67 MG/DL Estimat Glomerular Filtration 145 ML/MIN 143 ML/MIN Rate Random Glucose 93 MG/DL 83 MG/DL Calcium Level 8.6 MG/DL 8.4 MG/DL Magnesium Level 2.1 MG/DL Total Bilirubin 1.4 MG/DL 2.5 MG/DL Aspartate Amino Transf 167 U/L 227 U/L (AST/SGOT) Alanine Aminotransferase 99 U/L 219 U/L (ALT/SGPT) Alkaline Phosphatase 83 U/L 109 U/L Troponin I LESS THAN 0.02 NG/ML Total Protein 7.0 GM/DL 6.4 GM/DL Albumin 4.2 GM/DL 3.7 GM/DL Lipase 874 U/L 185 U/L Physical Examination HEENT: Normocephalic; atraumatic; no jaundice. CHEST: CTA CARDIAC: RRR ABDOMEN: Soft, nondistended, mild epigastric discomfort; no hepatosplenomegaly ; bowel sounds are present in all four quadrants. EXTREMITIES: No clubbing, cyanosis, or edema. SKIN: Multiple scabs [employer]ARR[employer] MANAGER: No focal deficits; alert and oriented times three. (Elisa Patino) Assessment and Plan Plan ASSESSMENT. - Abdominal pain, nausea, vomiting. There is some vague hx of chronic pancreatitis, but patient cannot provide much details regarding that- cannot say when it started, last episode, if he ever saw GI. Abdomen/ Pelvis CT (02/13/17)----> 1. Status post cholecystectomy. 2. No acute inflammatory process. 3. Stable subcentimeter hepatic low-density , likely benign. No leukocytosis. Lipase was 874 on admission, now normalized. - Questionable GIB, state he had n/v last night with dark brown/black emesis. Not sure if he has any hx of ulcers. - Elevated lipase, undetermined significance. It was mildly elevated on admission and now normal. No evidence of pancreatitis on CT. - Elevated LFTs. T. Bili 2.5, AST 227, ALT 219, ALk Phosph 109. He states only drug use is hepatitis, but he does have multiple scabs on upper arms and became very defensive when he noticed I was looking at these and said "I know it looks like I do drugs, but this is from [employer]." PLAN: - EGD in am - Obtain consents - Clear liquids - NPO - Add Protonix - Hepatitis profile - Toxicology profile - CBC, CMP, Lipase in am - Supportive care - Further recommendations to follow based on results of above - Pt seen and examined by Dr. Flores and myself and this note is written on his behalf (Elisa Patino) Physician Comments Patient seen and examined Agree with above Continue with current supportive care Monitor labs Plan for an EGD tomorrow (Moncho Flores MD) Elisa Patino Feb 14, 2017 14:41 Moncho Flores MD Feb 14, 2017 20:44
[2017-02-14 17:34] LABS: AMPHETAMINE, URINE NEG (NEG); BARBITURATES, URINE NEG (NEG); COCAINE, URINE NEG (NEG)
[2017-02-14] MEDS: PANTOPRAZOLE SODIUM 40 MG VIAL IV PUSH SCH (18:42)
[2017-02-15] VITALS (8 sets, daily range): BP systolic 126–141; BP diastolic 70–85; PULSE 58–76; RESP 18–19; TEMP 96–98.8; O2SAT 97
[2017-02-15] MEDS: HYDROmorphone HCL PF 1 MG/ML VIAL IV PUSH PRN ×6 (01:29→21:52)
[2017-02-15] MEDS: ONDANSETRON HCL 4 MG/2 ML VIAL IVP PRN ×3 (02:32→17:52)
[2017-02-15] MEDS: PANTOPRAZOLE SODIUM 40 MG VIAL IV PUSH SCH ×2 (02:32→17:51)
[2017-02-15] MEDS: SODIUM CHLOR 0.9% 1000 ML INJ 1,000 ML IV SCH ×4 (02:33→17:55)
[2017-02-15 04:21] LABS: BASOPHIL # 0.1 TH/MM3 (0-0.2); BASOPHIL % 0.8 % (0.0-2.0); EOSINOPHIL # 0.1 TH/MM3 (0-0.4); EOSINOPHIL % 1.1 % (0.0-4.0); HEMATOCRIT 39.8 % (39.0-51.0); HEMO FLAGS DIFF FINAL; LYMPH % 30.1 % (9.0-44.0); MEAN CELL VOLUME 95.3 FL (80.0-100.0); MEAN CORPUSCULAR HEMOGLOBIN 31.7 PG (27.0-34.0); MEAN CORPUSCULAR HGB CONC 33.2 % (32.0-36.0); PLATELET COUNT 149 TH/MM3 (150-450); RED BLOOD COUNT 4.18 MIL/MM3 (4.50-5.90); RED CELL DISTRIBUTION WIDTH 12.8 % (11.6-17.2); WHITE BLOOD COUNT 6.8 TH/MM3 (4.0-11.0)
[2017-02-15 04:49] LABS: ALT (GPT) 154 U/L (12-78); ANION GAP 6 MEQ/L (5-15); AST (GOT) 64 U/L (15-37); BICARBONATE 29.7 MEQ/L (21.0-32.0); BLOOD UREA NITROGEN 7 MG/DL (7-18); CHLORIDE 108 MEQ/L (98-107); GLOMERULAR FILTRATION RATE 130 ML/MIN (>89); SODIUM (NA) 144 MEQ/L (136-145)
[2017-02-15 04:52] LABS: ALKALINE PHOSPHATASE 107 U/L (45-117); TOTAL BILIRUBIN ADULT 0.9 MG/DL (0.2-1.0)
[2017-02-15] MEDS: NICOTINE 14 MG/24 HR PATCH T-DERMAL SCH (07:56)
[2017-02-15] MEDS: SODIUM CHLORIDE 0.9% FLUSH 10 ML FLUSH IV FLUSH SCH ×2 (07:57→21:00)
[2017-02-15] MEDS: REMOVE OLD PATCH T-DERMAL SCH (07:57)
--- NOTE | 2017-02-15 10:59 | HHI.PR ---
Subjective Remarks Follow up abdominal pain. Patient seen and examined today. Patient states he is still having abdominal pain throughout his whole abdomen. Per the RN he will be going down for his EGD soon. Patient states prior to midnight he was able to tolerate full liquids. Denies any chest pain, or sob. Objective Vitals Vital Signs Date Time Temp Pulse Resp B/P Pulse Ox O2 Delivery O2 Flow Rate FiO2 02/15/17 09:22 98.8 64 18 126/70 97 02/15/17 08:53 18 02/15/17 03:48 98.3 66 19 133/83 97 02/15/17 02:11 76 02/15/17 00:02 96.0 68 18 129/82 97 02/14/17 19:27 98.3 97 20 138/95 02/14/17 17:49 98.4 68 18 135/84 96 02/14/17 11:21 98.7 81 18 121/70 98 Result Diagram: 02/15/17 0335 02/15/17 0335 Imaging Last Impressions Chest X-Ray 02/13/17 1737 Signed Impressions: Service Date/Time: Monday, February 13, 2017 17:59 - CONCLUSION: No acute disease. Jas Arzate MD Abdomen/Pelvis CT 02/13/17 0000 Signed Impressions: Service Date/Time: Monday, February 13, 2017 18:23 - CONCLUSION: 1. Status post cholecystectomy. 2. No acute inflammatory process. 3. Stable subcentimeter hepatic low-density, likely benign. Jas Arzate MD Objective Remarks GENERAL: This is a well-nourished, well-developed patient, in NAD SKIN: No rashes, ecchymoses or lesions. Cool and dry. HEAD: Atraumatic. Normocephalic. No temporal or scalp tenderness. EYES: Extraocular motions intact. No scleral icterus. No injection or drainage. CARDIOVASCULAR: Regular rate and rhythm without murmurs, gallops, or rubs. RESPIRATORY: Clear to auscultation. Breath sounds equal bilaterally. No wheezes , rales, or rhonchi. GASTROINTESTINAL: Abdomen soft, tender to palpation, nondistended. MUSCULOSKELETAL: Extremities without clubbing, cyanosis, or edema. No joint tenderness, effusion, or edema noted. No calf tenderness. NEUROLOGICAL: Awake and alert. Motor and sensory grossly within normal limits. Five out of 5 muscle strength in all muscle groups. Normal speech. Medications and IVs Last Impressions Chest X-Ray 02/13/17 1737 Signed Impressions: Service Date/Time: Monday, February 13, 2017 17:59 - CONCLUSION: No acute disease. Jas Arzate MD Abdomen/Pelvis CT 02/13/17 0000 Signed Impressions: Service Date/Time: Monday, February 13, 2017 18:23 - CONCLUSION: 1. Status post cholecystectomy. 2. No acute inflammatory process. 3. Stable subcentimeter hepatic low-density, likely benign. Jas Arzate MD A/P Problem List: (1) Pancreatitis ICD Code: K85.9 Status: Acute (2) Transaminitis ICD Code: R74.0 Status: Acute Assessment and Plan This is a 26 year old male patient with a past medical history which includes ADHD, bipolar, gastritis and chronic pancreatitis. Patient was in his normal state of megan around 11:30 this morning patient was in his normal state of health and recalls taking a walk and running over the train tracks. [place] in the day around 1200pm patient began to have severe epigastric pain which radiated to his chest associated with intermitted nausea and dizziness without vomiting. Has had subjective intermitted fevers x 1 day with associated hot and cold flashes. Reports constipated last BM 1.5 days ago. Patient denies dysuria, penile discharge, open sores Acute exacerbation of chronic Pancreatitis, elevated lipase 874 on admission, now 185 CT abdomen/pelvis: Status post cholecystectomy. No acute inflammatory process. Stable subcentimeter hepatic low-density, likely benign. -NPO for EGD today, diet per GI -ContIV fluids -Dilaudid IV for pain management -Cont protonix Transaminitis, AST 167 -->227-->64, ALT 99-->219-->154 -Cont IV fluids -counselled on ETOH abuse -recheck CMP in AM -EGD pending Tobacco abuse -Counselled encouraged to abstain -nicotine patch DVT prophylaxis SCDs Written by PERLITA Lopez acting as scribe for Dr. Zuleta] on 02/15/17 at 10: 58. This note was transcribed by scribe Maria G BHAT. I, Dr. Dee Hairston personally performed the history, physical exam, and medical decision making; and confirmed the accuracy of the information in the transcribed note. Authenticated by Dr. Dee Hairston on 02/15/17 at 10:58. Discharge Planning Pending EGD and if patient can tolerate diet Problem Qualifiers (1) Pancreatitis: Qualified Code: K85.90 - Acute pancreatitis, unspecified complication status, unspecified pancreatitis type Maria G Rowe Feb 15, 2017 10:59 Dee Hairston MD Feb 15, 2017 14:52
[2017-02-15] MEDS ORDERED: MAGNESIUM HYDROXIDE SUSP 30 ML CUP PO PRN (13:30)
[2017-02-15] MEDS ORDERED: PROPOFOL 200 MG/20 ML AMP IV ONE (16:06)
[2017-02-15] MEDS ORDERED: MIDAZOLAM HCL 2 MG/2 ML VIAL ONE (16:18)
--- NOTE | 2017-02-15 16:20 | PD.PROCEDR ---
GI Procedure REFERRING PHYSICIAN Sarai PROCEDURE PERFORMED EGD with biopsy INDICATION FOR PROCEDURE Abdominal pain nausea and vomiting PROCEDURE: The procedure, risks and benefits were discussed with Mr. Galvan and informed consent was obtained. Anesthesia sedated him with Diprivan. He was placed in the left lateral decubitus position. EGD: The Pentax videoscope was introduced through the oropharynx and advanced to the second portion of the duodenum under direct visualization. Retroflexion was performed in the stomach. FINDINGS: The esophagus this was normal The stomach there was patchy erythema in the antrum but no ulcerations or erosions biopsies were taken for further evaluation The duodenum this was normal ESTIMATED BLOOD LOSS: None SPECIMENS REMOVED: Antrum COMPLICATIONS: None IMPRESSION: Mild gastritis PLAN: Await biopsy Continue current supportive care Monitor labs Most likely cause of current symptoms may be adverse reaction to smoking marijuana Moncho Flores MD Feb 15, 2017 16:20
[2017-02-15 21:21] LABS: INDIRECT BILIRUBIN 0.6 MG/DL (0.0-0.8); TOTAL BILIRUBIN ADULT 0.9 MG/DL (0.2-1.0)
[2017-02-15] MEDS: DOCUSATE SODIUM 100 MG CAP PO SCH (21:52)
[2017-02-16 00:51] VITALS: BP 118/76; PULSE 84; RESP 18; TEMP 97.8; O2SAT 97
[2017-02-16] MEDS: PANTOPRAZOLE SODIUM 40 MG VIAL IV PUSH SCH ×2 (02:01→15:24)
[2017-02-16] MEDS: ONDANSETRON HCL 4 MG/2 ML VIAL IVP PRN ×2 (02:02→08:25)
[2017-02-16] MEDS: HYDROmorphone HCL PF 1 MG/ML VIAL IV PUSH PRN ×3 (02:02→12:35)
[2017-02-16] MEDS: SODIUM CHLOR 0.9% 1000 ML INJ 1,000 ML IV SCH ×2 (02:02→12:36)
[2017-02-16 06:06] VITALS: BP 128/76; PULSE 77; RESP 18; TEMP 98.1; O2SAT 97
[2017-02-16 07:58] VITALS: BP 114/75; PULSE 65; RESP 18; TEMP 98.2; O2SAT 100
[2017-02-16] MEDS: DOCUSATE SODIUM 100 MG CAP PO SCH (08:24)
[2017-02-16] MEDS: NICOTINE 14 MG/24 HR PATCH T-DERMAL SCH (08:25)
[2017-02-16] MEDS: SODIUM CHLORIDE 0.9% FLUSH 10 ML FLUSH IV FLUSH SCH (08:26)
[2017-02-16] MEDS ORDERED: PROT40TA PO ×2 (08:49→10:26)
--- NOTE | 2017-02-16 08:51 | HHI.DCPOC ---
Discharge Care Plan Diagnosis: (1) Transaminitis (2) Gastritis Goals to Promote Your Health * To prevent worsening of your condition and complications * To maintain your health at the optimal level Directions to Meet Your Goals Take your medications as prescribed Follow your dietary instruction Follow activity as directed Keep your appointments as scheduled Take your immunizations and boosters as scheduled If your symptoms worsen call your PCP, if no PCP go to Urgent Care Center or Emergency Room Smoking is Dangerous to Your Health. Avoid second hand smoke Call the 24-hour hour crisis hotline for domestic abuse at Maria G Rowe Feb 16, 2017 08:50 Dee Hairston MD Feb 16, 2017 19:08
[2017-02-16] MEDS: REMOVE OLD PATCH T-DERMAL SCH (09:00)
[2017-02-16] MEDS ORDERED: PHENOL 1.4% SOLN 180 ML BTL OROPHARYNG PRN (10:15)
[2017-02-16] MEDS ORDERED: MAGICADU2 SWISH-SWAL (10:24)
[2017-02-16] MEDS ORDERED: CARA1SUS3 PO (10:24)
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
[2017-02-16 12:21] VITALS: BP 124/72; PULSE 67; RESP 18; TEMP 98.1; O2SAT 95
[2017-02-16] MEDS: SUCRALFATE 1 GM/10 ML CUP PO SCH ×2 (12:34→15:24)
[2017-02-16] MEDS ORDERED: NYSTAT/DIPHENHY/LIDO MOUTHWASH (Adult) 120ML SWISH-SWAL SCH (13:00)
== END 2017-02-16 15:49 | disposition home or self-care (01) ==
LOC: NEPD 17:22 → INTOOBSV 20:00 → NEDA 20:00 → NEPFCDU 23:33
PROVIDERS: ADMIT Hospitalist; ATTEND Hospitalist
DX: K29.50 Unspecified chronic gastritis without bleeding (principal); J02.9 Acute pharyngitis, unspecified; K86.1 Other chronic pancreatitis; F90.9 Attention-deficit hyperactivity disorder, unspecified type; F31.9 Bipolar disorder, unspecified; R74.8 Abnormal levels of other serum enzymes; R74.0 Nonspecific elevation of levels of transaminase and lactic acid dehydrogenase [LDH]; F10.10 Alcohol abuse, uncomplicated; F17.200 Nicotine dependence, unspecified, uncomplicated; Z90.49 Acquired absence of other specified parts of digestive tract
CPT/HCPCS: 43239; 71010; 74177; 80053; 80074; 80076; 80307; 83690; 83735; 84484; 85025; 85610; 85730; 88305; 88312; 96361; 96374; 96375; 99285; C9113; G0378; J1170; J2250; J2270; J2405; J3010; J7030; Q9967

== ENCOUNTER 2018-01-22 10:28 | Emergency (ER) | payer OTHER ==
[~2018-01-22] VITALS: Ht 170.2 cm; Wt 66.0 kg
[~2018-01-22 10:28] MED LIST changes: +CARA1SUS3 PO; +MAGICADU2 SWISH-SWAL; +PROT40TA PO; -ZANT150T2 PO; -ZOFR4TAB3 SL
[2018-01-22 10:53] VITALS: BP 134/80; PULSE 78; RESP 16; TEMP 98; O2SAT 100
[2018-01-22] MEDS ORDERED: IBUP1TAB7 PO (11:12)
[2018-01-22] MEDS ORDERED: IBUPROFEN 800 MG TAB PO ONE (11:15)
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
== END 2018-01-22 12:29 | disposition home or self-care (01) ==
LOC: NEPK 10:28
DX: S89.92XA Unspecified injury of left lower leg, initial encounter (principal); F12.90 Cannabis use, unspecified, uncomplicated; V13.0XXA Pedal cycle driver injured in collision with car, pick-up truck or van in nontraffic accident, initial encounter; Z72.0 Tobacco use
CPT/HCPCS: 73564; 99283; E0113

== ENCOUNTER 2018-03-17 14:06 | Emergency (ER) | payer SELFPAY ==
[~2018-03-17] VITALS: Ht 170.2 cm; Wt 66.0 kg
[~2018-03-17 14:06] MED LIST changes: -CARA1SUS3 PO; +IBUP1TAB7 PO; -MAGICADU2 SWISH-SWAL; -PROT40TA PO
[2018-03-17 14:32] VITALS: BP 142/57; PULSE 90; RESP 20; TEMP 98.8; O2SAT 99
[2018-03-17] MEDS ORDERED: TETANUS/DIPHTHERIA TOXOID ADULT 0.5 ML VIAL IM ONE (15:30)
[2018-03-17] MEDS ORDERED: LIDOCAINE HCL 2% 20 ML VIAL INFIL ONE (15:30)
[2018-03-17] MEDS ORDERED: ACETAMINOPHEN/HYDROcodone 325 MG/7.5 MG TAB PO ONE (15:30)
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
[2018-03-17] MEDS ORDERED: CEPH-460 PO (15:40)
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
--- NOTE | 2018-03-17 16:24 | PD ---
Data Data Last Documented VS Vital Signs Date Time Temp Pulse Resp B/P (MAP) Pulse Ox O2 Delivery O2 Flow Rate FiO2 03/17/18 14:32 98.8 90 20 142/57 (85) 99 Orders Orders Acetamin-Hydrocod 325-7.5 Mg ([place] 7.5 (03/17/18 15:30) Tetanus/Diphtheria Tox Adult (Tetanus/Di (03/17/18 15:30) Lidocaine 2% Inj (Xylocaine 2% Inj) (03/17/18 15:30) Hand, Complete ([id number]) (03/17/18 ) Ed Discharge Order (03/17/18 17:09) MDM Supervised Visit with SHMUEL: Yes Narrative Course I, Dr. Christy, have reviewed the advance practice practitioner's documentation and am in agreement, met with the patient face to face, made the diagnosis, and the medical decision making was done by me. *My assessment and Findings: Patient seen and examined by me in addition to Madeline Macdonald, 28-year-old male presents emergency department laceration chiefly over the volar aspect of his right thumb, there is also small laceration of the right index finger. Patient has full tendon range of motion of all fingers in all joints of the upper extremity, he has full abduction of the thumb, limited some pain. Examination laceration shows no foreign body, appears that the tendons and bones are not exposed. Amenable for ER repair and then follow-up with a primary care physician or return to ED for suture removal. Stable for discharge after the wound repair Diagnosis Primary Impression: Hand laceration Additional Impression: Finger laceration Referrals: Hand Surgeon Additional Instruction: Follow up with your primary care physician within 2-3 days. Keep area clean and dry for 24 hours. After 24 hours, you may bathe as normal but dry the area thoroughly. You may use [id number] triple antibiotic ointments for your injury daily. Change dressings daily. If bleeding starts, apply pressure and elevate the area. If you developed increased redness, swelling, or pain return to the emergency department as this could be a sign of infection. Scripts Ibuprofen (Ibuprofen) 800 Mg Tab 800 MG PO Q8H Y for Pain/Inflammation for 5 Days, #15 TAB 0 Refills Prov: Reyes Christy MD 03/17/18 Cephalexin (Keflex) 500 Mg Cap 500 MG PO Q8H for Infection for 7 Days, #21 CAP 0 Refills Prov: Reyes Christy MD 03/17/18 Disposition: 01 DISCHARGE HOME Condition: Stable Reyes Christy MD March 17, 2018 16:24
[2018-03-17] MEDS ORDERED: IBUP1TAB7 PO (17:07)
== END 2018-03-17 18:07 | disposition home or self-care (01) ==
LOC: NEPD 14:06
DX: S61.210A Laceration without foreign body of right index finger without damage to nail, initial encounter (principal); S61.212A Laceration without foreign body of right middle finger without damage to nail, initial encounter; W25.XXXA Contact with sharp glass, initial encounter; Z23 Encounter for immunization
CPT/HCPCS: 12002; 73130; 90471; 90714